=== PATIENT | male | born 1980 | race Caucasian/White ===

== ENCOUNTER 2024-05-02 11:18 | Outpatient (CLI) | payer MEDICARE, SELFPAY ==
--- NOTE | 2024-05-02 11:27 | XRR_ITS ---
PROCEDURE INFORMATION: Exam: XR Cervical Spine Exam date and time: 05/02/2024 11:43 AM Age: 43 years old Clinical indication: Cervicalgia; Prior surgery; Surgery date: 6+ months; Surgery type: Cervical spinal stimulator; Patient HX: Neck pain and pressure in ears x 2mo TECHNIQUE: Imaging protocol: Radiologic exam of the cervical spine. Views: 6 or more views. COMPARISON: No relevant prior studies available. FINDINGS: Tubes, catheters and devices: There is an epidural neurostimulator with leads positioned from mid C2 through C4-C5 disc level. Bones/joints: There is 2 mm anterolisthesis of C3 on C4 and 2 mm anterolisthesis of C4 on C5 during flexion. Spinal alignment is normal in extension. Vertebral body height is maintained. No acute fracture. The tip of the dens is obscured. The cervical spine is visible through C7-T1 on the lateral view. There is mild disc narrowing and vertebral osteophytes at C4-C5, C5-C6, and C6-C7. There is minimal multilevel facet spondylosis. C2 and C3 spinous process is are fused. C2-C3 facets may be partially fused. Neural foramina are suboptimally visualized. There is opacification of right mastoid air cells. Soft tissues: Visible soft tissues are unremarkable. XR/XR cervical spine min 6V [id number] IMPRESSION: 1. Grade 1 anterolisthesis of C3 on C4 and C4 on C5 during flexion; resolves with extension. 2. Right mastoid effusion.
== END 2024-05-02 11:19 | disposition home or self-care (01) ==
LOC: RAD 11:25
PROVIDERS: Visit Provider Otolaryngology
DX: H74.8X1 Other specified disorders of right middle ear and mastoid (principal); M53.82 Other specified dorsopathies, cervical region; Z98.890 Other specified postprocedural states; Z96.82 Presence of neurostimulator; M54.2 Cervicalgia; M25.78 Osteophyte, vertebrae
CPT/HCPCS: 72052

== ENCOUNTER 2025-03-06 18:49 | Inpatient (IN) | payer SELFPAY ==
--- OUTSIDE RECORDS SUMMARY | 2008-09-01 19:00 | XMS_ITS | Continuity of Care Document ---
Author Organization [facility] Address [address] [place] [id number] Phone Care Team Providers Care Railroad Conductor Name Role Phone CONV, [facility] Unavailable Unavailable Advance Directives Directive Yes / No Effective Date File Name No Information Encounters Encounter Description Practice Location Reason(s) For Visit Diagnoses Date Provider Providers Copied on Encounter [facility] /[facility], [address] [place] [address], [id number], [place] tel:[phone] Z [facility] CONV No Information CONV [facility]. [address] [place] [address], [id number], [place]. Family History Family Member Type Diagnosis Age At Onset No Information Immunizations Vaccine Date Status Comments DT administered Source: New Imm unization Record ORAL POLIO administered Source: New Imm unization Record [id number], PED/ADL administered Source: New Immuniza tion Record DT administered Source: New Imm unization Record ORAL POLIO administered Source: New Imm unization Record DTP administered Source: New Imm unization Record ORAL POLIO administered Source: New Imm unization Record DTP administered Source: New Imm unization Record ORAL POLIO administered Source: New Imm unization Record Payers Payer name Insurance type Covered constitution party ID Authoriza tion(s) No Information Social History Type Description Quantity Date Captured Comments Sex Male Smoking Status No Information Chief Complaint And Reason For Visit No Information History Of Present Illness Encounter Date Complaint History Of Prese nt Illness No Information Instructions Date Instruction Additional Infor mation No Information Assessments Type Assessment Date No Information Patient Care Teams Name Effective Dates (start - stop) Status Members No Information
--- OUTSIDE RECORDS SUMMARY | 2014-12-24 20:00 | XMS_ITS | Continuity of Care Document ---
Author Organization [facility] Address [address] [place] [address] Phone Care Team Providers Care Technology Applications Teacher Name Role Phone Santiago Deras MD Unavailable Unavailable Procedures Procedure Date ANESTH, ELBOW AREA SURGERY ANESTH, LOWER ARM SURGERY ANESTH, LOWER ARM SURGERY ANESTH, LOWER ARM SURGERY ANESTH, LOWER ARM SURGERY Advance Directives Directive Yes / No Effective Date File Name No Information Encounters Encounter Description Practice Location Reason(s) For Visit Diagnoses Date Provider Providers Copied on Encounter [facility], [address], [place], [place], [id number], tel:[phone] [address] [place] [address] No Information 5 Bra[place] , [place], . [facility], [address], [place], [place], [id number], tel:[phone] [address] [place] [address] No Information 5 Braeden Styles , [place], [place]. [facility], [address], [place], [place], [id number], tel:[phone] [address] [place] [address] No Information 5 Braeden Styles , [place], [place]. Family History Family Member Type Diagnosis Age At Onset No Information Payers Payer name Insurance type Covered alliance party ID Authoriza tion(s) AIG [id number] Social History Type Description Quantity Date Captured Comments Sex Male Smoking Status No Information Chief Complaint And Reason For Visit No Information Reason For Referral Reason For Referral No Information History Of Present Illness Encounter Date Complaint History Of Prese nt Illness No Information Functional Status Date Functional Assessmen t No Information Instructions Date Instruction Additional Infor mation No Information Assessments Type Assessment Date No Information Patient Care Teams Name Effective Dates (start - stop) Status Members No Information
[2025-03-06 18:58] VITALS: BP 139/84; PULSE 75; RESP 18; TEMP 36.7; O2SAT 97; BMI 22.1
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
[2025-03-06 19:19] LABS: Glucose Urine UA Negative (Normal); Nitrate Urine Negative (Negative); Specific Gravity, Urine 1.009 (1.005-1.030)
[2025-03-06 19:24] LABS: Add Urine Microscopic? YES
[2025-03-06 19:28] LABS: PCP Screen Urine Negative (Negative)
[2025-03-06 19:54] LABS: Hematocrit 43.0 % (37-53); Hemoglobin 14.60 g/dL (11.27-16.99); Mean Corpuscular HGB Conc 34.0 g/dL (30-55); Mean Corpuscular Hemoglobin 31.5 pg (27-33); Mean Corpuscular Volume 92.7 fl (82-101); Nucleated Red Blood Cells % 0 %; Platelet Count 167 10^3/cmm (157-399); Red Blood Count 4.64 10^6/uL (3.85-5.65); White Blood Count 10.01 10^3/uL (3.29-11.43)
[2025-03-06 20:29] LABS: Acetaminophen 7.7 ug/mL (10-30); Alanine Aminotransferase 25 U/L (0-41); Albumin Level 4.3 g/dL (3.5-5.2); Alkaline Phosphatase 45 U/L (40-130); Anion Gap 15.7 (5-19); Aspartate Amino Transferase 30 U/L (0-40); Blood Urea Nitrogen 6 mg/dL (6-20); Calcium 9.2 mg/dL (8.5-10.5); Carbon Dioxide 27 mmol/L (22-29); Chloride 103 mmol/L (98-107); Creatinine Clr Calc Pharmacy 148.2149; Globulin 2.2 g/dL (1.3-4.6); Glucose 96 mg/dL (65-115); Osmolality Calculated 291 mOsm/kg (285-295); Potassium 3.7 mmol/L (3.5-5.1); Sodium 142 mmol/L (136-145); Thyroid Stimulating Hormone 1.46 uIU/mL (0.27-4.20); Total Protein 6.5 g/dL (6.6-8.7)
[2025-03-06 20:31] LABS: Alcohol Level < 10 mg/dL (0-10)
--- NOTE | 2025-03-06 20:38 | PC.NURSE ---
Pt was read his 96 hour hold rights at 1935. Security present.
[2025-03-06 22:36] VITALS: BP 108/66; PULSE 61; O2SAT 97
[2025-03-06 23:11] VITALS: BP 139/91; PULSE 83; RESP 18; TEMP 36.4; O2SAT 96
[2025-03-07 06:00] VITALS: BP 120/69; PULSE 70; RESP 16; TEMP 36.9; O2SAT 99
[2025-03-07 14:00] VITALS: BP 133/84; PULSE 97; RESP 18; TEMP 36.6; O2SAT 97
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
[2025-03-07 20:53] VITALS: BP 125/69; PULSE 62; RESP 18; TEMP 36.9; O2SAT 99
[2025-03-08 06:00] VITALS: BP 131/78; PULSE 79; RESP 20; TEMP 36.6; O2SAT 100
[2025-03-08 14:00] VITALS: BP 132/81; PULSE 76; RESP 16; TEMP 36.6; O2SAT 97
--- NOTE | 2025-03-08 17:01 | P.NPUPN_ITS ---
Subjective NPU 2 Subjective: 44-year-old male with a history of compl ex regional pain syndrome with significant improvement noted through the use of marijuana who presented with a recent adjustment disorder with disturbance of conduct and emotion. The patient had reported that he was feeling good. He had refused any medications at this time. He had reported that he was growing his marijuana and did not endorse any current need to take any medications. Patient was given information that perhaps the use of his marijuana may have been contributing to increased problems with irritability and agitation and that a possible change in the proportion with a decrease in the use of C. Sativa may be of some benefit. He had adequate sleep. He reported no difficulties with concentration and reported no pain issues. Mental Status Exam 2 MSE Comments: Patient appeared to be a healthy white male who appeared his stated age she was initially guarded on interview but appeared to warm later. He appeared in no acute distress. He was a good historian. He was alert and oriented to person, place, time, and situation. His speech was normal in regards to rate, rhythm, and prosody. His mood was described as okay. His affect appeared euthymic. His thought process was linear, logical, and goal-directed. His thought content revealed no suicidal or homicidal ideation. There was no evidence of delusional thinking. He did not appear to be responding to internal stimuli. His recent and remote memory were grossly intact. His insight was partial. His judgment appeared fair. His impulse control appeared adequate. Vitals/I&O/Wt Last Vital Signs Temp 97.8 F 03/08/25 14:00 Pulse 76 03/08/25 14:00 Resp 16 03/08/25 14:00 BP 132/81 03/08/25 14:00 Pulse Ox 97 03/08/25 14:00 O2 Del Method Room Air 03/08/25 14:00 Weight last 48 hrs Weight 74.162 kg Data NPU 03/06/25 19:45 03/06/25 19:45 A&P Assessment and plan 1. Adjustment disorder with disturbance of emotion: Plan: 44-year-old male who appears today here involuntarily with reports of increased paranoia and agitation per but appearing somewhat irritable but not psychotic initially on interview here. It is possible that he has chronic use of marijuana may be contributing to some increased paranoia however it appears to have been enormously helpful at managing a otherwise chronically difficult medical condition. #1.? Engage patient in individual milieu and group therapy. #2?? Recommend sober living treatment at the highest level of care to which the patient is willing to commit? #3?? TO-15 minute checks? #4?? Will attempt to gather collateral information #5 Evaluate in context of 96 hour hold. Patient informed that Dr. Paulino will be here tommorow and discharge may or may not occur tommorow. PDMP PDMP Reviewed: Not Reviewed Involuntary Hold Information 2 Hold Status: Legal Status: 96 Hour Hold Date/Time Hold Expires: 03/12/25 @18:49 Attestations NPU 2 Medical Necessity Statement*: Inpatient hospitalization is medically necessary and deemed to ?be ?the clinically appropriate intervention ?at this time.? We will monitor/initiate medications and make changes as indicated.? The patient will be hospitalized for at least two midnights. The patient?s likely length of stay 2-3 days. Coding Level of Care Code Acute Code for Chg Fwd Diagnoses Adjustment disorder with disturbance of emotion F43.29
[2025-03-08 20:07] VITALS: BP 125/71; PULSE 76; RESP 18; TEMP 37.3; O2SAT 98
[2025-03-09 06:00] VITALS: BP 135/85; PULSE 80; RESP 18; TEMP 36.4; O2SAT 97
--- NOTE | 2025-03-09 09:37 | NUR.SHIFT ---
Pt states that he slept pretty good last night. He states that he woke up having a nightmare that his daughter had drowned. I asked if he regulary has nightmares and he states that he doesn't, his brother had taken his daughter to the loc[place] and he was worried about that and he figures that is why. No reports of anxiety or depression. Denies SI/HI or hallucinations. When I asked him about his pain level, he states that it is nothing worth mentioning. Pt was calm and cooperative on assessment, but had an upset nature about him.
[2025-03-09 14:00] VITALS: BP 149/89; PULSE 74; RESP 18; TEMP 36.6; O2SAT 99
--- NOTE | 2025-03-09 16:44 | W.PM.NPUDCS ---
Diagnoses at Discharge Discharge Diagnosis 1. Adjustment disorder with disturbance of emotion: Reason for Visit Reason for Visit: 96 hour hold Involuntary Hold Information Hold Status: Legal Status: 96 Hour Hold Date/Time Hold Expires: 03/12/25 @18:49 Discharge Data Studies Completed and Pending: Laboratory Results WBC 10.01 10^3/uL (3. 29-11.43) 03/06/25 19:45 RBC 4.64 10^6/uL (3.8 5-5.65) 03/06/25 19:45 Hgb 14.60 g/dL (11.27 -16.99) 03/06/25 19:45 Hct 43.0 % (37-53) 03/06/25 19:45 MCV 92.7 fl (82-101) 03/06/25 19:45 MCH 31.5 pg (27-33) 03/06/25 19:45 MCHC 34.0 g/dL (30-55) 03/06/25 19:45 RDW 12.4 % (12.1-15.1 ) 03/06/25 19:45 Plt Count 167 10^3/cmm (157 -399) 03/06/25 19:45 MPV 9.1 fL (7.4-10.4) 03/06/25 19:45 Neut % (Auto) 68.5 % 03/06/25 19:45 Lymph % (Auto) 21.6 % 03/06/25 19:45 [place] % (Auto) 8.0 % 03/06/25 19:45 Eos % (Auto) 1.2 % 03/06/25 19:45 Baso % (Auto) 0.4 % 03/06/25 19:45 Neut # (Auto) 6.86 10^3/uL (1.8 -7.7) 03/06/25 19:45 Lymph # (Auto) 2.2 10^3/uL (0.8- 4.8) 03/06/25 19:45 [place] # (Auto) 0.8 10^3/uL (0.2- 0.9) 03/06/25 19:45 Eos # (Auto) 0.1 10^3/uL (0.0- 0.8) 03/06/25 19:45 Baso # (Auto) 0.0 10^3/uL (0.0- 0.1) 03/06/25 19:45 Nucleated RBC % (a uto) 0 % 03/06/25 19:45 Nucleated RBCs # 0.0 /100WBC 03/06/25 19:45 Sodium 142 mmol/L (136-1 45) 03/06/25 19:45 Potassium 3.7 mmol/L (3.5-5 .1) 03/06/25 19:45 Chloride 103 mmol/L (98-10 7) 03/06/25 19:45 Carbon Dioxide 27 mmol/L (22-29) 03/06/25 19:45 Anion Gap 15.7 (5-19) 03/06/25 19:45 BUN 6 mg/dL (6-20) 03/06/25 19:45 Creatinine 0.7 mg/dL (0.7-1. 2) 03/06/25 19:45 GFR Calculation 123.7 mL/min (90- 130) 03/06/25 19:45 Glucose 96 mg/dL (65-115) 03/06/25 19:45 Calculated Osmolal ity 291 mOsm/kg (285- 295) 03/06/25 19:45 Calcium 9.2 mg/dL (8.5-10 .5) 03/06/25 19:45 Total Bilirubin 0.5 mg/dL (0.15-1 .2) 03/06/25 19:45 AST 30 U/L (0-40) 03/06/25 19:45 ALT 25 U/L (0-41) 03/06/25 19:45 Alkaline Phosphata se 45 U/L (40-130) 03/06/25 19:45 Total Protein 6.5 g/dL (6.6-8.7 ) L 03/06/25 19:45 Albumin 4.3 g/dL (3.5-5.2 ) 03/06/25 19:45 Globulin 2.2 g/dL (1.3-4.6 ) 03/06/25 19:45 TSH 1.46 uIU/mL (0.27 -4.20) 03/06/25 19:45 Urine Color Yellow (Yellow) 03/06/25 19:08 Urine Appearance Clear (CLEAR) 03/06/25 19:08 Urine pH 6.0 (5-7) 03/06/25 19:08 Ur Specific Gravit y 1.009 (1.005-1.0 30) 03/06/25 19:08 Urine Protein Negative (Negati ve) 03/06/25 19:08 Urine Glucose (UA) Negative (Normal ) 03/06/25 19:08 Urine Ketones Negative (Negati ve) 03/06/25 19:08 Urine Blood Negative (Negati ve) 03/06/25 19:08 Urine Nitrate Negative (Negati ve) 03/06/25 19:08 Urine Bilirubin Negative (Negati ve) 03/06/25 19:08 Urine Urobilinogen 0.2 mg/dL (Negati ve) 03/06/25 19:08 Ur Leukocyte Kaylah ase Negative (Negati ve) 03/06/25 19:08 Urine RBC 0-2 /hpf (0-2) 03/06/25 19:08 Urine WBC 0-5 /hpf (0-5) 03/06/25 19:08 Ur Squamous Epith Cells 0-5 /hpf (0-5) 03/06/25 19:08 Amorphous Sediment Not Reportable 03/06/25 19:08 Urine Bacteria None seen /hpf (N ONE) 03/06/25 19:08 Hyaline Casts 0-4 /lpf H 03/06/25 19:08 Urine Opiates Scre en Negative ng/mL (N egative) 03/06/25 19:08 Acetaminophen 7.7 ug/mL (10-30) L 03/06/25 19:45 Ur Barbiturates Sc reen Negative ng/mL (N egative) 03/06/25 19:08 Ur Phencyclidine S crn Negative ng/mL (N egative) 03/06/25 19:08 Ur Amphetamines Sc reen Negative ng/mL (N egative) 03/06/25 19:08 U Benzodiazepines Scrn Negative ng/mL (N egative) 03/06/25 19:08 Urine Cocaine Scre en Negative ng/mL (N egative) 03/06/25 19:08 U Marijuana (THC) Screen Positive ng/mL (N egative) H 03/06/25 19:08 Ethyl Alcohol < 10 mg/dL (0-10) 03/06/25 19:45 Vitals: Last Vital Signs Temp 97.8 F 03/09/25 14:00 Pulse 74 09/05/25 14:00 Resp 18 03/09/25 14:00 BP 149/89 03/09/25 14:00 Pulse Ox 99 03/09/25 14:00 O2 Del Method Room Air 03/09/25 14:00 Discharge Plan Discharge Patient Disposition: Home Condition: Stable Prescriptions: Continued No Known Home Medications Discharge Order = DC NOW: Discharge Order (Routine); Ordered 03/09/25 Ordered By: Mckinley Villar Referrals: [facility] [Outside, Behavioral Health] Shane Cohen DO [Physician, Family Practice] - 03/13/25 2:15 pm Discharge Diet: Usual diet Discharge Activity: Resume usual activity Patient Instructions: Opioid Safety, Patient Portal & Kendra Instructions Discharge Attestations NPU Time Spent in Discharge Care*: greater than 30 min Specific Discharge Activities: Specific discharge activities: educating patient (Spent considerable amount of time talking about the THC for psychosis and the risk at higher levels of THC in the flower. Discussed researching to see to see what level of THC is necessary for him to get the pain relief he needs and trying to stick to source of in that range and not higher.), discussing with renal case manager/social workers/dc planners, documenting/other paperwork and evaluating patient/reviewing data Coding Level of Care Code Acute Code for Chg Fwd Diagnoses Adjustment disorder with disturbance of emotion F43.29
[2025-03-09 17:28] VITALS: BP 131/87; PULSE 77; RESP 18; TEMP 36.9; O2SAT 100
== END 2025-03-09 18:40 | disposition home or self-care (01) | DRG 885 ==
LOC: ER 21:58 → NP 22:48
PROVIDERS: Admitting Provider Psychiatry & Neurology Psychiatry; Emergency Provider Physician Assistant; Visit Provider Psychiatry & Neurology Psychiatry
DX: F22 Delusional disorders (principal); F43.25 Adjustment disorder with mixed disturbance of emotions and conduct; F12.90 Cannabis use, unspecified, uncomplicated
CPT/HCPCS: 36415; 80053; 80306; 80307; 81001; 84443; 85025; 97150; 97165; 99285